=== PATIENT | male | born 1995 | race Caucasian/White ===

== ENCOUNTER 2016-09-11 11:52 | Emergency (ER) | payer BC ==
[~2016-09-11] VITALS: Ht 177.8 cm; Wt 86.7 kg
[2016-09-11 11:55] VITALS: TEMP 36.7; Ht 177.8 cm; Wt 86.7 kg
[2016-09-11] MEDS ORDERED: ESCI1TAB9 PO (12:09)
[2016-09-11] MEDS ORDERED: ISOT20CA3 PO (12:09)
--- NOTE | 2016-09-11 12:59 | DIAGNOSTIC IMAGING REPORT ---
RIGHT FOOT MIN 3 VIEWS ROUTINE CLINICAL HISTORY: Right foot pain. Palpable abnormality. COMPARISON: None FINDINGS: Tarsometatarsal joints are intact. No fracture or suspicious lesion is identified. Joint spaces are preserved. There is apparent soft tissue swelling overlying the dorsal aspect of the tarsometatarsal joint shown on lateral projection. IMPRESSION: 1. No osseous abnormality of the right foot. 2. Soft tissue swelling/prominence of the dorsal right midfoot, a nonspecific finding. Electronically signed by: Adryan Kebede M.D. 09/11/2016 12:57 PM Dictated Date/Time: 09/11/2016 12:56 PM
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
[2016-09-11 13:35] VITALS: BP 129/76; PULSE 66; O2SAT 98
== END 2016-09-11 13:36 | disposition home or self-care (01) ==
LOC: C.EDB 11:53 → C.EDD 13:36
DX: M79.671 Pain in right foot (principal); F17.200 Nicotine dependence, unspecified, uncomplicated; Z87.828 Personal history of other (healed) physical injury and trauma; Z87.820 Personal history of traumatic brain injury; Z98.890 Other specified postprocedural states; Z79.899 Other long term (current) drug therapy; Z91.09 Other allergy status, other than to drugs and biological substances

== ENCOUNTER 2017-08-06 13:51 | Emergency (ER) | payer BC ==
[~2017-08-06] VITALS: Ht 185.4 cm; Wt 94.0 kg
[~2017-08-06 13:51] MED LIST: ESCI1TAB9 PO; ISOT20CA3 PO
[2017-08-06 13:55] VITALS: TEMP 36.5; Ht 185.4 cm; Wt 94.0 kg
--- NOTE | 2017-08-06 14:25 | DIAGNOSTIC IMAGING REPORT ---
L KNEE 3 VIEWS CLINICAL HISTORY: left knee pain trauma. Pain. COMPARISON: None. DISCUSSION: Cortical fracture lateral patella. This is nondisplaced. There is hairline extension to the articular services. There is no evidence for soft tissue swelling. IMPRESSION: Nondisplaced linear cortical fracture lateral margin of the patella. Alignment is anatomic. The above report was generated using voice recognition software. It may contain grammatical, syntax or spelling errors. Electronically signed by: Sebastián Montoya M.D. 08/06/2017 2:23 PM Dictated Date/Time: 08/06/2017 2:22 PM
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
[2017-08-06 14:49] VITALS: BP 136/47; PULSE 59; O2SAT 98
== END 2017-08-06 14:50 | disposition home or self-care (01) ==
LOC: C.EDB 13:53 → C.EDD 14:50
DX: S82.092A Other fracture of left patella, initial encounter for closed fracture (principal); V00.131A Fall from skateboard, initial encounter; W22.09XA Striking against other stationary object, initial encounter; Y93.51 Activity, roller skating (inline) and skateboarding; Z87.828 Personal history of other (healed) physical injury and trauma; Z91.048 Other nonmedicinal substance allergy status